=== PATIENT | male | born 1960 | race Caucasian/White ===

== ENCOUNTER 2019-09-05 04:42 | Emergency (ER) | payer SELFPAY ==
--- NOTE | 2019-09-05 04:57 | ED Physician Documentation ---
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 Patient state he fell in and was able to get up and drive to [place], however, the pain in his left ribs was intolerable, so he called 911. He also complains of shortness of breath. Onset: today Where: work Context: slipped r: moderate Associated Symptoms:: no loss of consciousness Location of Pain/Injury: chest, hip (left) Injury to Right Extremity: none Injury to Left Extremity: none Further Comments: no - ROS CONST: no problems NEURO: denies: dizziness MS/SKIN/LYMPH: denies: weakness EYES/ENT: none CVS/RESP: chest pain, shortness of breath GI/: denies: nausea, vomiting - PAST HX Past History: none Allergies/Adverse Reactions: Allergies Allergy/AdvReac Type Severity Reaction Status Date / Time No Known Allergies Allergy Verified 09/05/19 04:56 Home Medications: Ambulatory Orders Medication Instructions Recorded amLODIPine BESYLATE [Norvasc] 1 tab PO DAILY 09/05/19 - SOCIAL HX Smoking History: cigarettes, greater than 1 pack/day Alcohol Use: none Drug Use: none - FAMILY HX Family History: no significant history - REVIEWED ASSESSMENTS Nursing Assessment Reviewed: Yes Vitals Reviewed: Yes ED Results Lab/Radiology - Radiology Radiology Impressions: Report Submission Date: Sep 05, 2019 5:52:24 AM CDT Patient Study Name: MANJIT NEFF Date: Sep 05, 2019 5:04:00 AM CDT Modality Type: CT\SR Gender: M Description: CT CHEST W/O CONTRAST : 62 Institution: [facility] Physician: TAMARA MORGAN CT chest without contrast History: FALL, LEFT CHEST PAIN, SHORTNESS OF BREATH (Hx) / ITS.REASON fall, left chest pain, shortness of breath no comparison studies No comparison studies Multiple indeterminate bilateral lung nodules are present, for reference right middle lobe nodule series 3 image 34 measures 4.6 mm. Small left pleural effu leola. No pneumothorax. Lingular atelectasis. Left lower lobe ground glass opacity and air space disease Evaluation is limited due to lack of contrast. Coronary calcification. Coronary stents are present, no pericardial effusion. No obvious mediastinal hematoma Limited views of the upper abdomen demonstrate calcification in right hepatic lobe, no perihepatic fluid. Slightly heterogeneous appearance in the peripheral right hepatic lobe Mild left colonic wall thickening. Questionable rightanterior 3rd rib fracture. Fractures of the left 6-10th ribs. Thoracic spine degenerative changes are present Impression: 1. Fractures of the left 6th through 10th ribs. Airspace opacities in the lingula and the left lower lobe suggestive of contusions in setting of trauma. Small left pleural effusion/ hemothorax. No pneumothorax. 2. Indeterminate bilateral lung nodules need attention on followup. Questionable anterior right 3rd rib fracture 3. No obvious perihepatic or perisplenic fluid is seen in the upper abdomen however study is limited for evaluation of parenchymal injuries due to lack of contrast. No mediastinal hematoma. 4. Left colonic wall thickening is of indeterminate cause, incompletely imaged and evaluated. Electronically signed on Sep 05, 2019 5:52:24 AM CDT by: Yesi Putnam Report Submission Date: Sep 05, 2019 5:56:51 AM CDT Patient Study Name: MANJIT NEFF Date: Sep 05, 2019 5:14:10 AM CDT Modality Type: DX Gender: M Description: PELVIS AP 1 OR 2 VIEWS : 62 Institution: [facility] Physician: TAMARA MORGAN 1 view of the pelvis History: FALL, LT HIP PAIN No comparison studies Patient is rotated There is a complex multipart fracture of the left iliac crest extending almost to the acetabulum with multiple osseous fracture fragments. Intact pubic symphysis. Both hips are appear intact. Sacroiliac joints appear within normal limits. Bowel gas and feces limit evaluation. Impression: Complex multipart displaced fracture of the left iliac crest extending almost to the acetabulum. Fracture fragments are displaced. Adjacent soft tissue swelling is present. Electronically signed on Sep 05, 2019 5:56:51 AM CDT by: Yesi Putnam Fall Physical Exam - Physical Exam General Appearance: no acute distress, alert Head: non-tender, no swelling, no obvious injury Neck: non-tender, painless ROM Eye: EDWAR, EOMI ENT: no dental injury, no oral injury Resp/CVS: heart sounds nml, rib tenderness (left lateral), splinting, decreased breath sounds Abdomen: soft, normal bowel sounds, non-tender Neuro: oriented x3, mood/affect nml Skin: color nml, no rash Back: normal inspection, no vertebral tenderness Extremities: bony point-tenderness (left anterior iliac crest ) Joint: limited ROM, painful - Hemant Coma Score Eyes Open: Spontaneous Speech: Oriented Motor: Obeys Commands Discharge Clincal Impression: Rib fractures Qualifiers: Encounter type: initial encounter Rib fracture type: multiple ribs Fracture type: closed Laterality: left Qualified Code(s): S22.42XA - Multiple fractures of ribs, left side, initial encounter for closed fracture Closed fracture of left iliac crest Qualifiers: Encounter type: initial encounter Qualified Code(s): S32.302A - Unspecified fracture of left ilium, initial encounter for closed fracture Referrals: Primary Doctor,No [Primary Care Provider] - 2 Days Additional Instructions: 1. Start Medrol dose pack tomorrow. Take as directed 2. [place] every 4 hours as needed for pain 3. Norflex every 12 hours as needed for pain 4. Do incentive spirometry 5 times every hour you are awake 5. Follow up with PCP within 3 days, discuss referral to Orthopedic 6. Return to ER for new or worsening symptoms Condition: Stable Disposition: 01 HOME, SELF-CARE Decision to Admit: NO Date of Decison to Admit: 09/05/19 Decision Time: 06:18
[2019-09-05 04:59] VITALS: BP 149/89
--- NOTE | 2019-09-05 05:56 | Diagnostic Imaging Report ---
PATIENT MR#: [id number] PATIENT PATIENT NAME: MANJIT NEFF DATE OF : 1960 REFERRING PHYSICIAN: Reyna Verma EXAM DATE: 09/05/2019 ACCESSION NUMBER: [id number] EXAM DESCRIPTION: CT CHEST W/O CONTRAST CT chest without contrast comparison studies No comparison studies Multiple indeterminate bilateral lung nodules are present, for reference right middle lobe nodule ser ies 3 image 34 measures 4.6 mm. Small left pleural effusion. No pneumothorax. Lingular atelectasis. Left lower lobe ground glass opacity and air space disease Evaluation is limited due to lack of contrast. Coronary calcification. Coronary stents are present, n o pericardial effusion. No obvious mediastinal hematoma Limited views of the upper abdomen demonstrate calcification in right hepatic lobe, no perihepatic fl uid. Slightly heterogeneous appearance in the peripheral right hepatic lobe Mild left colonic wall thickening. Questionable rightanterior 3rd rib fracture. Fractures of the left 6-10th ribs. Thoracic spine degenerative changes are present Impression: 1. Fractures of the left 6th through 10th ribs. Airspace opacities in the lingula and the left lower lobe suggestive of contusions in setting of trauma. Small left pleural effusion/ hemothorax. No pneumothorax. 2. Indeterminate bilateral lung nodules need attention on followup. Questionable anterior right 3rd r ib fracture 3. No obvious perihepatic or perisplenic fluid is seen in the upper abdomen however study is limited for evaluation of parenchymal injuries due to lack of contrast. No mediastinal hematoma. 4. Left colonic wall thickening is of indeterminate cause, incompletely imaged and evaluated. Read by: Dr. Yesi Putnam Transcribed by: Transcribed Date: Electronically signed by: Dr. Yesi Putnam Date signed: 09/05/2019 5:54:57 AM
[2019-09-05] MEDS: methylPREDNISolone SOD SUCC 125 MG/2 ML VIAL IM ONE (06:00)
[2019-09-05] MEDS: ORPHENADRINE CITRATE 60 MG/2 ML ML IM ONE (06:00)
[2019-09-05] MEDS: HYDROcodone /APAP 5/325 1 EACH TABLET PO ONE (06:15)
--- NOTE | 2019-09-07 11:30 | Diagnostic Imaging Report ---
TAMARA MORGAN [facility] [id number] [facility] [address] [address] Report Submission Date: Sep 05, 2019 5:56:51 AM CDT Patient Study Name: MANJIT NEFF Date: Sep 05, 2019 5:14:10 AM CDT Modality Type: DX Gender: M Description: PELVIS AP 1 OR 2 VIEWS : 62 Institution: [facility] Physician: TAMARA MORGAN 1 view of the pelvis History: FALL, LT HIP PAIN No comparison studies Patient is rotated There is a complex multipart fracture of the left iliac crest extending almost to the acetabulum with multiple osseous fracture fragments. Intact pubic symphysis. Both hips are appear intact. Sacroiliac joints appear within normal limits. Bowel gas and feces limit evaluation. Impression: Complex multipart displaced fracture of the left iliac crest extending almost to the acetabulum. Fracture fragments are displaced. Adjacent soft tissue swelling is present. Electronically signed on Sep 05, 2019 5:56:51 AM CDT by: Yesi QUINTERO
== END 2019-09-05 06:42 | disposition home or self-care (01) ==
LOC: ED 04:42
DX: S22.42XA Multiple fractures of ribs, left side, initial encounter for closed fracture (principal); S32.302A Unspecified fracture of left ilium, initial encounter for closed fracture; V68.9XXA Unspecified occupant of heavy transport vehicle injured in noncollision transport accident in traffic accident, initial encounter; Y99.0 Civilian activity done for income or pay
CPT/HCPCS: 71250; 72170; 96372; 99284; A9270; J2360; J2930